=== PATIENT | female | born 1955 | race Caucasian/White ===

== ENCOUNTER 2016-08-14 18:20 | Inpatient (IN) | payer OTHER ==
[~2016-08-14] VITALS: Ht 162.6 cm; Wt 57.2 kg
[2016-08-14 18:30] VITALS: BP 169/99
[2016-08-14] MEDS ORDERED: Z GUARD REMEDY 2 OZ OINT TP PRN (19:00)
[2016-08-14] MEDS ORDERED: ACETAMINOPHEN 325 MG TABLET PO PRN (19:00)
[2016-08-14] MEDS ORDERED: ONDANSETRON HCL/PF 4 MG/2 ML VIAL IVP PRN (19:00)
[2016-08-14 20:00] VITALS: BP 158/90
[2016-08-14] MEDS ORDERED: LOSA25TA13 PO (20:35)
[2016-08-14] MEDS ORDERED: DOXY100C PO (20:35)
[2016-08-14] MEDS ORDERED: HYDR-3326 PO (20:35)
[2016-08-14] MEDS ORDERED: AMLO5TAB2 PO (20:35)
[2016-08-14] MEDS ORDERED: TRIA1TAB3 PO (20:35)
[2016-08-14] MEDS ORDERED: GUAN2TAB19 PO (20:35)
[2016-08-14] MEDS ORDERED: IBUP-1955 PO (20:37)
[2016-08-14] MEDS ORDERED: HYDROCODONE/APAP 5/325MG 1 EACH TABLET PO PRN (21:00)
[2016-08-14] MEDS ORDERED: IBUPROFEN 600 MG TABLET PO PRN (21:00)
[2016-08-14] MEDS ORDERED: GUANFACINE HCL 2 MG PO PRN (21:00)
[2016-08-14] MEDS ORDERED: IV SET PRIMARY PUMP SET 1 EA INFUS.SET MC ONE (21:56)
[2016-08-14] MEDS: AMLODIPINE BESYLATE 5 MG TABLET PO SCH (22:26)
[2016-08-14] MEDS: LOSARTAN POTASSIUM 25 MG TABLET PO SCH (22:26)
[2016-08-14] MEDS: TRIAMTERENE/HYDROCHLOROTHIAZID (37.5/25MG) 1 UDCAP PO SCH (22:27)
[2016-08-14] MEDS: MORPHINE SULFATE INJ 2 MG/ML DISP.SYRIN IV PRN (22:28)
[2016-08-14] MEDS: IV NS 0.9% 1,000 ML IV PRN (22:28)
[2016-08-15] MEDS: ZOLPIDEM TARTRATE 5 MG TABLET PO PRN (00:55)
[2016-08-15 06:36] LABS: BASOPHILS % (AUTO) 0.1 % (0.0-2.0); DIFF TOTAL % 100 %; EOSINOPHILS % (AUTO) 0.3 % (0.0-6.0); HEMATOCRIT 43 % (33-45); HEMOGLOBIN 14.3 g/dL (11.5-14.8); LYMPHOCYTES # (AUTO) 1.8 /CMM (0.8-4.8); LYMPHOCYTES % (AUTO) 17.9 % (20.0-44.0); MEAN CORPUSCULAR HEMOGLOBIN 29 PG (26.0-33.0); MEAN CORPUSCULAR HGB CONC 33 g/dl (31.0-36.0); MEAN CORPUSCULAR VOLUME 88 fL (82-100); MONOCYTES # (AUTO) 0.5 /CMM (0.1-1.30); MONOCYTES % (AUTO) 4.7 % (2.0-12.0); NEUTROPHILS # (AUTO) 7.9 /CMM (1.8-8.9); PLATELET COUNT (AUTO) 226 /CMM (150-450); RED BLOOD CELL COUNT(AUTO) 4.93 MIL/uL (4.0-5.2); WHITE BLOOD COUNT (AUTO) 10.2 K/uL (4.3-11.0)
[2016-08-15 07:10] LABS: ALBUMIN 3.8 g/dL (3.4-5.0); BILIRUBIN,TOTAL 0.5 mg/dL (0.2-1.0); CALCIUM, SERUM 9.1 mg/dL (8.5-10.1); CREATININE 1.1 mg/dL (0.6-1.3); PHOSPHORUS 3.6 mg/dL (2.5-4.9); POTASSIUM 3.3 mmol/L (3.5-5.1); TOTAL PROTEIN, SERUM 7.5 g/dL (6.4-8.2)
[2016-08-15 08:00] VITALS: BP 136/80
[2016-08-15] MEDS: AMLODIPINE BESYLATE 5 MG TABLET PO SCH ×3 (08:40→21:00)
[2016-08-15 09:15] VITALS: BP 136/80
[2016-08-15] MEDS: IV NS 0.9% 1,000 ML IV PRN (12:06)
[2016-08-15] MEDS ORDERED: POTASSIUM CHLORIDE 20 MEQ TAB.PRT.SR PO ONE (12:30)
[2016-08-15 16:03] VITALS: BP 140/78
[2016-08-15 20:00] VITALS: BP 145/94
[2016-08-15] MEDS ORDERED: CEFTRIAXONE 1 G in IV D5W 50 ML IV SCH (20:00)
[2016-08-15] MEDS ORDERED: IV D5W 50 ML IV ONE (20:43)
[2016-08-15] MEDS ORDERED: SECONDARY IV SET 1 EA INFUS.SET MC ONE (20:43)
[2016-08-15] MEDS ORDERED: CEFTRIAXONE 1 G VIAL ONE (20:43)
[2016-08-15] MEDS ORDERED: DOXYCYCLINE HYCLATE (100 MG) 100 MG TABLET ONE (20:43)
[2016-08-15] MEDS: DOXYCYCLINE HYCLATE (100 MG) 100 MG TABLET PO SCH (21:16)
[2016-08-15] MEDS: LOSARTAN POTASSIUM 25 MG TABLET PO SCH (21:16)
[2016-08-15] MEDS: TRIAMTERENE/HYDROCHLOROTHIAZID (37.5/25MG) 1 UDCAP PO SCH (21:16)
[2016-08-16] MEDS: MORPHINE SULFATE INJ 2 MG/ML DISP.SYRIN IV PRN (03:54)
[2016-08-16] MEDS: IV NS 0.9% 1,000 ML IV PRN ×2 (03:59→17:25)
[2016-08-16 06:49] LABS: BASOPHILS % (AUTO) 0.3 % (0.0-2.0); DIFF TOTAL % 100 %; EOSINOPHILS # (AUTO) 0.1 /CMM (0.0-0.7); EOSINOPHILS % (AUTO) 1.6 % (0.0-6.0); HEMATOCRIT 46 % (33-45); HEMOGLOBIN 15.1 g/dL (11.5-14.8); LYMPHOCYTES # (AUTO) 2.2 /CMM (0.8-4.8); LYMPHOCYTES % (AUTO) 35.9 % (20.0-44.0); MEAN CORPUSCULAR HEMOGLOBIN 29 PG (26.0-33.0); MEAN CORPUSCULAR HGB CONC 33 g/dl (31.0-36.0); MEAN CORPUSCULAR VOLUME 87 fL (82-100); MONOCYTES # (AUTO) 0.4 /CMM (0.1-1.30); NEUTROPHILS # (AUTO) 3.4 /CMM (1.8-8.9); NEUTROPHILS % (AUTO) 55.2 % (43.0-81.0); PLATELET COUNT (AUTO) 233 /CMM (150-450); RED BLOOD CELL COUNT(AUTO) 5.27 MIL/uL (4.0-5.2); WHITE BLOOD COUNT (AUTO) 6.2 K/uL (4.3-11.0)
[2016-08-16 07:10] LABS: CALCIUM, SERUM 9.6 mg/dL (8.5-10.1); CREATININE 1.1 mg/dL (0.6-1.3); PHOSPHORUS 3.6 mg/dL (2.5-4.9); POTASSIUM 3.5 mmol/L (3.5-5.1)
[2016-08-16 08:12] VITALS: BP 132/84
[2016-08-16] MEDS: AMLODIPINE BESYLATE 5 MG TABLET PO SCH ×2 (09:00→21:42)
[2016-08-16] MEDS: DOXYCYCLINE HYCLATE (100 MG) 100 MG TABLET PO SCH ×2 (09:27→21:42)
[2016-08-16 16:07] VITALS: BP 149/88
[2016-08-16 19:00] VITALS: BP_SYST 159; BP_SYST 163; BP_DIAS 76; BP_DIAS 94
[2016-08-16 20:00] VITALS: BP 163/94
[2016-08-16] MEDS: CEFTRIAXONE 1 G in IV D5W 50 ML IV SCH (21:41)
[2016-08-16] MEDS: LOSARTAN POTASSIUM 25 MG TABLET PO SCH (21:41)
[2016-08-16] MEDS: TRIAMTERENE/HYDROCHLOROTHIAZID (37.5/25MG) 1 UDCAP PO SCH (21:55)
[2016-08-16] MEDS: ZOLPIDEM TARTRATE 5 MG TABLET PO PRN (22:00)
[2016-08-17 06:55] LABS: BASOPHILS % (AUTO) 0.5 % (0.0-2.0); DIFF TOTAL % 100 %; EOSINOPHILS # (AUTO) 0.2 /CMM (0.0-0.7); EOSINOPHILS % (AUTO) 3.2 % (0.0-6.0); HEMATOCRIT 43 % (33-45); HEMOGLOBIN 14.4 g/dL (11.5-14.8); LYMPHOCYTES # (AUTO) 1.6 /CMM (0.8-4.8); LYMPHOCYTES % (AUTO) 32.4 % (20.0-44.0); MEAN CORPUSCULAR HEMOGLOBIN 29 PG (26.0-33.0); MEAN CORPUSCULAR HGB CONC 33 g/dl (31.0-36.0); MEAN CORPUSCULAR VOLUME 87 fL (82-100); MONOCYTES # (AUTO) 0.4 /CMM (0.1-1.30); MONOCYTES % (AUTO) 8.3 % (2.0-12.0); NEUTROPHILS # (AUTO) 2.7 /CMM (1.8-8.9); NEUTROPHILS % (AUTO) 55.6 % (43.0-81.0); PLATELET COUNT (AUTO) 193 /CMM (150-450); RED BLOOD CELL COUNT(AUTO) 4.97 MIL/uL (4.0-5.2); WHITE BLOOD COUNT (AUTO) 4.8 K/uL (4.3-11.0)
[2016-08-17 07:18] LABS: CALCIUM, SERUM 9.3 mg/dL (8.5-10.1); CREATININE 0.9 mg/dL (0.6-1.3); POTASSIUM 3.5 mmol/L (3.5-5.1)
[2016-08-17 08:00] VITALS: BP 152/97
[2016-08-17] MEDS: DOXYCYCLINE HYCLATE (100 MG) 100 MG TABLET PO SCH ×2 (08:25→21:34)
[2016-08-17] MEDS: AMLODIPINE BESYLATE 5 MG TABLET PO SCH ×2 (08:25→21:00)
[2016-08-17] MEDS ORDERED: GUANFACINE HCL 2 MG PO SCH ×5 (08:35→22:00)
[2016-08-17] MEDS ORDERED: SECONDARY IV SET 1 EA INFUS.SET MC ONE (12:10)
[2016-08-17] MEDS: Magnesium 1GM/D5W 100ML PREMIX 100 ML IV SCH ×2 (12:28→12:29)
[2016-08-17] MEDS: IV NS 0.9% 1,000 ML IV PRN (12:29)
[2016-08-17] MEDS: MORPHINE SULFATE INJ 2 MG/ML DISP.SYRIN IV PRN (13:46)
[2016-08-17 14:20] LABS: QFT NIL VALUE 0.02 IU/mL (.)
[2016-08-17 14:28] LABS: HIV-1 p24 ANTIGEN NON REACTIVE (NONREACTIVE); HIV-1/2 ANTIBODY NON REACTIVE (NONREACTIVE)
[2016-08-17 16:00] VITALS: BP 162/99
[2016-08-17] MEDS: VALSARTAN 80 MG TABLET PO SCH (17:00)
[2016-08-17 20:00] VITALS: BP 136/94
[2016-08-17] MEDS: CEFTRIAXONE 1 G in IV D5W 50 ML IV SCH (21:33)
[2016-08-17] MEDS: LOSARTAN POTASSIUM 25 MG TABLET PO SCH (21:34)
[2016-08-17] MEDS: TRIAMTERENE/HYDROCHLOROTHIAZID (37.5/25MG) 1 UDCAP PO SCH (21:34)
[2016-08-17] MEDS: HYDROCODONE/APAP 5/325MG 1 EACH TABLET PO PRN (21:37)
[2016-08-17] MEDS: GUANFACINE HCL 2 MG PO SCH (22:00)
[2016-08-18 07:51] LABS: BASOPHILS % (AUTO) 0.4 % (0.0-2.0); DIFF TOTAL % 100 %; EOSINOPHILS # (AUTO) 0.2 /CMM (0.0-0.7); EOSINOPHILS % (AUTO) 4.1 % (0.0-6.0); HEMATOCRIT 38 % (33-45); HEMOGLOBIN 12.9 g/dL (11.5-14.8); LYMPHOCYTES # (AUTO) 1.5 /CMM (0.8-4.8); LYMPHOCYTES % (AUTO) 39.4 % (20.0-44.0); MEAN CORPUSCULAR HEMOGLOBIN 29 PG (26.0-33.0); MEAN CORPUSCULAR HGB CONC 33 g/dl (31.0-36.0); MEAN CORPUSCULAR VOLUME 86 fL (82-100); MONOCYTES # (AUTO) 0.3 /CMM (0.1-1.30); MONOCYTES % (AUTO) 7.3 % (2.0-12.0); NEUTROPHILS # (AUTO) 1.8 /CMM (1.8-8.9); NEUTROPHILS % (AUTO) 48.8 % (43.0-81.0); PLATELET COUNT (AUTO) 196 /CMM (150-450); RED BLOOD CELL COUNT(AUTO) 4.46 MIL/uL (4.0-5.2); WHITE BLOOD COUNT (AUTO) 3.7 K/uL (4.3-11.0)
[2016-08-18 08:00] VITALS: BP 111/70
[2016-08-18 08:00] LABS: CALCIUM, SERUM 8.9 mg/dL (8.5-10.1); CREATININE 0.9 mg/dL (0.6-1.3); PHOSPHORUS 4.2 mg/dL (2.5-4.9); POTASSIUM 3.7 mmol/L (3.5-5.1)
[2016-08-18] MEDS: VALSARTAN 80 MG TABLET PO SCH (08:56)
[2016-08-18] MEDS: AMLODIPINE BESYLATE 5 MG TABLET PO SCH ×2 (08:56→21:00)
[2016-08-18] MEDS: DOXYCYCLINE HYCLATE (100 MG) 100 MG TABLET PO SCH ×2 (08:57→21:16)
[2016-08-18] MEDS: Magnesium 1GM/D5W 100ML PREMIX 100 ML IV SCH ×2 (12:00→13:00)
[2016-08-18 13:21] LABS: HEPATITIS C VIRUS AB <0.1 s/co ratio (0.0-0.9)
[2016-08-18] MEDS: IV NS 0.9% 1,000 ML IV PRN ×2 (14:07→23:26)
[2016-08-18] MEDS: HYDROCODONE/APAP 5/325MG 1 EACH TABLET PO PRN (15:33)
[2016-08-18 16:00] VITALS: BP 150/98
[2016-08-18 20:00] VITALS: BP 164/86
[2016-08-18 20:32] VITALS: BP 164/86
[2016-08-18] MEDS: CEFTRIAXONE 1 G in IV D5W 50 ML IV SCH (21:15)
[2016-08-18] MEDS: TRIAMTERENE/HYDROCHLOROTHIAZID (37.5/25MG) 1 UDCAP PO SCH (21:16)
[2016-08-18] MEDS: LOSARTAN POTASSIUM 25 MG TABLET PO SCH (21:17)
[2016-08-18] MEDS: GUANFACINE HCL 2 MG PO SCH (21:18)
[2016-08-18] MEDS ORDERED: GUANFACINE HCL 2 MG PO SCH (22:00)
[2016-08-19 07:38] LABS: CALCIUM, SERUM 9.3 mg/dL (8.5-10.1); CREATININE 0.9 mg/dL (0.6-1.3); POTASSIUM 3.8 mmol/L (3.5-5.1)
[2016-08-19 08:00] VITALS: BP 149/90
[2016-08-19] MEDS: AMLODIPINE BESYLATE 5 MG TABLET PO SCH ×2 (09:00→21:00)
[2016-08-19] MEDS: VALSARTAN 80 MG TABLET PO SCH (09:02)
[2016-08-19] MEDS: DOXYCYCLINE HYCLATE (100 MG) 100 MG TABLET PO SCH ×2 (09:02→21:10)
[2016-08-19 09:39] LABS: ANGIOTENSION CONVERTING ENZYME 33 U/L (14-82)
[2016-08-19] MEDS: Magnesium 1GM/D5W 100ML PREMIX 100 ML IV SCH ×2 (10:45→11:45)
[2016-08-19] MEDS: IV NS 0.9% 1,000 ML IV PRN (13:02)
[2016-08-19] MEDS: HYDROCODONE/APAP 5/325MG 1 EACH TABLET PO PRN (14:50)
[2016-08-19 16:00] VITALS: BP 151/91
[2016-08-19 16:28] VITALS: BP 151/91
[2016-08-19] MEDS ORDERED: MAGNESIUM OXIDE 400 MG TABLET PO SCH (17:00)
[2016-08-19] MEDS: MAGNESIUM OXIDE 400 MG TABLET PO SCH (17:53)
[2016-08-19 20:00] VITALS: BP 169/89
[2016-08-19] MEDS: CEFTRIAXONE 1 G in IV D5W 50 ML IV SCH (21:10)
[2016-08-19] MEDS: TRIAMTERENE/HYDROCHLOROTHIAZID (37.5/25MG) 1 UDCAP PO SCH (21:11)
[2016-08-19] MEDS: GUANFACINE HCL 2 MG PO SCH (21:11)
[2016-08-19] MEDS: LOSARTAN POTASSIUM 25 MG TABLET PO SCH (21:11)
[2016-08-20] MEDS: MAGNESIUM OXIDE 400 MG TABLET PO SCH ×2 (07:13→17:34)
[2016-08-20 07:53] LABS: POTASSIUM 3.9 mmol/L (3.5-5.1)
[2016-08-20 08:00] VITALS: BP 162/86
[2016-08-20] MEDS: DOXYCYCLINE HYCLATE (100 MG) 100 MG TABLET PO SCH ×2 (09:00→21:16)
[2016-08-20] MEDS: AMLODIPINE BESYLATE 5 MG TABLET PO SCH ×2 (09:00→21:16)
[2016-08-20] MEDS: VALSARTAN 80 MG TABLET PO SCH (09:03)
[2016-08-20 16:00] VITALS: BP 166/83
[2016-08-20] MEDS ORDERED: IPRATROPIUM NEB FS 0.5 MG/2.5 ML AMPUL.NEB NEB SCH ×2 (17:30)
[2016-08-20] MEDS ORDERED: ALBUTEROL HALF STRENGTH 1.25 MG/3 ML VIAL.NEB NEB SCH (17:30)
[2016-08-20] MEDS: ALBUTEROL HALF STRENGTH 1.25 MG/3 ML VIAL.NEB NEB SCH (19:44)
[2016-08-20] MEDS: IPRATROPIUM NEB FS 0.5 MG/2.5 ML AMPUL.NEB NEB SCH (19:45)
[2016-08-20] MEDS: CEFTRIAXONE 1 G in IV D5W 50 ML IV SCH (21:14)
[2016-08-20] MEDS: TRIAMTERENE/HYDROCHLOROTHIAZID (37.5/25MG) 1 UDCAP PO SCH (21:15)
[2016-08-20] MEDS: GUANFACINE HCL 2 MG PO SCH (21:17)
[2016-08-20 21:36] VITALS: BP 151/70
[2016-08-20] MEDS: IV NS 0.9% 1,000 ML IV PRN (21:43)
[2016-08-20 22:00] VITALS: BP 151/70
[2016-08-21] MEDS: IPRATROPIUM NEB FS 0.5 MG/2.5 ML AMPUL.NEB NEB SCH ×4 (01:30→21:59)
[2016-08-21] MEDS: ALBUTEROL HALF STRENGTH 1.25 MG/3 ML VIAL.NEB NEB SCH ×4 (01:30→21:59)
[2016-08-21] MEDS: MAGNESIUM OXIDE 400 MG TABLET PO SCH (05:54)
[2016-08-21 06:57] LABS: CALCIUM, SERUM 8.7 mg/dL (8.5-10.1); CREATININE 0.9 mg/dL (0.6-1.3); POTASSIUM 3.9 mmol/L (3.5-5.1)
[2016-08-21 07:56] VITALS: BP 113/71
[2016-08-21 08:00] VITALS: BP 113/71
[2016-08-21] MEDS: HYDROCODONE/APAP 5/325MG 1 EACH TABLET PO PRN (08:31)
[2016-08-21] MEDS: DOXYCYCLINE HYCLATE (100 MG) 100 MG TABLET PO SCH ×2 (08:32→21:08)
[2016-08-21] MEDS: VALSARTAN 80 MG TABLET PO SCH (08:33)
[2016-08-21] MEDS: AMLODIPINE BESYLATE 5 MG TABLET PO SCH ×2 (08:34→21:08)
[2016-08-21] MEDS: IV NS 0.9% 1,000 ML IV PRN (12:05)
[2016-08-21 16:00] VITALS: BP 133/85
[2016-08-21 19:59] VITALS: BP 120/80
[2016-08-21] MEDS: CEFTRIAXONE 1 G in IV D5W 50 ML IV SCH (21:07)
[2016-08-21] MEDS: GUANFACINE HCL 2 MG PO SCH (21:07)
[2016-08-21] MEDS: TRIAMTERENE/HYDROCHLOROTHIAZID (37.5/25MG) 1 UDCAP PO SCH (21:08)
[2016-08-22] MEDS: ALBUTEROL HALF STRENGTH 1.25 MG/3 ML VIAL.NEB NEB SCH ×4 (00:42→22:18)
[2016-08-22] MEDS: IPRATROPIUM NEB FS 0.5 MG/2.5 ML AMPUL.NEB NEB SCH ×4 (00:42→22:18)
[2016-08-22] MEDS: IV NS 0.9% 1,000 ML IV PRN ×2 (03:10→17:13)
[2016-08-22 08:00] VITALS: BP 109/75
[2016-08-22] MEDS: DOXYCYCLINE HYCLATE (100 MG) 100 MG TABLET PO SCH ×2 (08:55→20:49)
[2016-08-22] MEDS: VALSARTAN 80 MG TABLET PO SCH (08:55)
[2016-08-22] MEDS: AMLODIPINE BESYLATE 5 MG TABLET PO SCH ×2 (08:56→20:49)
[2016-08-22] MEDS: HYDROCODONE/APAP 5/325MG 1 EACH TABLET PO PRN (12:25)
[2016-08-22] MEDS: predniSONE 20 MG TABLET PO SCH (13:06)
[2016-08-22 15:42] VITALS: BP 133/75
[2016-08-22 19:56] VITALS: BP 153/89
[2016-08-22 20:00] VITALS: BP 153/89
[2016-08-22] MEDS ORDERED: PHENAZOPYRIDINE HCL 200 MG TABLET PO PRN (20:30)
[2016-08-22] MEDS ORDERED: PHENAZOPYRIDINE HCL 200 MG TABLET ONE (20:38)
[2016-08-22] MEDS ORDERED: IV SET PRIMARY PUMP SET 1 EA INFUS.SET MC ONE (20:38)
[2016-08-22] MEDS ORDERED: SECONDARY IV SET 1 EA INFUS.SET MC ONE (20:39)
[2016-08-22] MEDS: CEFTRIAXONE 1 G in IV D5W 50 ML IV SCH (20:50)
[2016-08-22] MEDS: TRIAMTERENE/HYDROCHLOROTHIAZID (37.5/25MG) 1 UDCAP PO SCH (20:50)
[2016-08-22] MEDS: GUANFACINE HCL 2 MG PO SCH (21:18)
[2016-08-23] MEDS: ALBUTEROL HALF STRENGTH 1.25 MG/3 ML VIAL.NEB NEB SCH ×3 (01:30→13:40)
[2016-08-23] MEDS: IPRATROPIUM NEB FS 0.5 MG/2.5 ML AMPUL.NEB NEB SCH ×3 (01:30→13:40)
[2016-08-23] MEDS: IV NS 0.9% 1,000 ML IV PRN (06:19)
[2016-08-23 08:00] VITALS: BP 139/90
[2016-08-23] MEDS: DOXYCYCLINE HYCLATE (100 MG) 100 MG TABLET PO SCH (08:54)
[2016-08-23 08:55] VITALS: BP 139/90
[2016-08-23] MEDS: AMLODIPINE BESYLATE 5 MG TABLET PO SCH (08:55)
[2016-08-23] MEDS: predniSONE 20 MG TABLET PO SCH (08:55)
[2016-08-23] MEDS: VALSARTAN 80 MG TABLET PO SCH (08:55)
[2016-08-23] MEDS: HYDROCODONE/APAP 5/325MG 1 EACH TABLET PO PRN (09:54)
[2016-08-23] MEDS ORDERED: Doxycycline Hyclate PO (11:14)
[2016-08-24 11:37] LABS: *LYME IgM AB <0.80 index (0.00-0.79)
== END 2016-08-23 14:30 | disposition home or self-care (01) | DRG 144 ==
LOC: MEDSG2 18:20
PROVIDERS: ADMIT Nurse Practitioner Acute Care; ATTEND Nurse Practitioner Acute Care
DX: J20.9 Acute bronchitis, unspecified (principal); N17.0 Acute kidney failure with tubular necrosis; N39.0 Urinary tract infection, site not specified; I08.1 Rheumatic disorders of both mitral and tricuspid valves; J45.901 Unspecified asthma with (acute) exacerbation; B96.20 Unspecified Escherichia coli [E. coli] as the cause of diseases classified elsewhere; E87.6 Hypokalemia; I10 Essential (primary) hypertension; I25.2 Old myocardial infarction; J06.9 Acute upper respiratory infection, unspecified; J42 Unspecified chronic bronchitis; R73.9 Hyperglycemia, unspecified; G89.29 Other chronic pain; M54.9 Dorsalgia, unspecified; Z98.82 Breast implant status
CPT/HCPCS: 36415; 70220-TC; 71010-TC; 80048-TC; 80053-TC; 80074; 82164; 83735-TC; 84100-TC; 85025-TC; 86632; 86738; 86778; 87070-TC; 87081-TC; 87086-TC; 87116; 87206; 87400; 87899; 93307-TC; 94640-TC; J0696; J2270; J2405; J3475; J7030; J7060; Z7610